=== PATIENT | male | born 1975 | race Hispanic/Latino ===

== ENCOUNTER 2017-09-23 00:29 | Emergency (ER) | payer OTHER ==
--- NOTE | 2017-09-23 01:00 | ED PDOC ---
Arrival/HPI - General Historian: Patient - History of Present Illness Symptom Onset: Gradual Symptom Course: Unchanged Activities at Onset: Light Context: Home <Sean Rod - Last Filed: 09/23/17 06:37> <Alejandro Mulligan - Last Filed: 09/23/17 14:44> - General Chief Complaint: Psychiatric Evaluation Time Seen by Provider: 09/23/17 00:35 - History of Present Illness Narrative History of Present Illness (Text): 09/23/17 00:43 42 year old male, whose past medical history includes anxiety, presents to the emergency department by EMS reporting Suicidal Ideation. He reported to family that he wanted to harm himself and said "bye". Patient reported to be drinking tonight, but states "not so much". Family at bed side endorsed that he is depressed and suicidal. Patient states he is depressed, but denies any fever, chills, chest pain, shortness of breath, nausea, vomiting, diarrhea, urinary symptoms, back pain, neck pain, headache, dizziness, suicidal ideation, or any other complaints. (Sean Rod) Past Medical History - Provider Review Nursing Documentation Reviewed: Yes - Infectious Disease Hx of Infectious Diseases: None - Psychiatric Hx Anxiety: Yes Hx Depression: Yes Hx Substance Use: No - Anesthesia Hx Anesthesia: No <Sean Rod - Last Filed: 09/23/17 06:37> Family/Social History - Physician Review Nursing Documentation Reviewed: Yes Family/Social History: No Known Family HX Smoking Status: Never Smoked Hx Alcohol Use: Yes Hx Substance Use: No <Sean Rod - Last Filed: 09/23/17 06:37> Allergies/Home Meds <Sean Rod - Last Filed: 09/23/17 06:37> <Alejandro Mulligan - Last Filed: 09/23/17 14:44> Allergies/Adverse Reactions: Allergies pine nut Allergy (Verified 09/23/17 00:41) ANAPHYLAXIS Home Medications: Home Meds Medication Instructions Recorded Confirmed Citalopram Hydrobromide [Celexa] 10 mg PO DAILY 09/23/17 09/23/17 Review of Systems - Physician Review All systems were reviewed & negative as marked: Yes - Review of Systems Constitutional: absent: Fevers, Other (Chills) Respiratory: absent: SOB Cardiovascular: absent: Chest Pain Gastrointestinal: absent: Diarrhea, Nausea, Vomiting Genitourinary Male: absent: Dysuria, Frequency, Hematuria Musculoskeletal: absent: Back Pain, Neck Pain Neurological: absent: Headache, Dizziness Psychiatric: Depression. absent: Suicidal Ideation <Sean Rod - Last Filed: 09/23/17 06:37> Physical Exam Vital Signs Reviewed: Yes Temperature: Afebrile Blood Pressure: Normal Pulse: Regular Respiratory Rate: Normal Appearance: Positive for: Well-Appearing, Non-Toxic, Comfortable Pain Distress: None Mental Status: Positive for: Alert and Oriented X 3 - Systems Exam Head: Present: Atraumatic, Normocephalic Pupils: Present: PERRL Extroacular Muscles: Present: EOMI Conjunctiva: Present: Normal Mouth: Present: Moist Mucous Membranes Neck: Present: Normal Range of Motion Respiratory/Chest: Present: Clear to Auscultation, Good Air Exchange. No: Respiratory Distress, Accessory Muscle Use Cardiovascular: Present: Regular Rate and Rhythm, Normal S1, S2. No: Murmurs Abdomen: No: Tenderness, Distention, Peritoneal Signs Back: Present: Normal Inspection Upper Extremity: Present: Normal Inspection. No: Cyanosis, Edema Lower Extremity: Present: Normal Inspection. No: Edema Neurological: Present: GCS=15, CN II-XII Intact, Speech Normal Skin: Present: Warm, Dry, Normal Color. No: Rashes Psychiatric: Present: Alert, Oriented x 3, Normal Insight, Normal Concentration <Sean Rod - Last Filed: 09/23/17 06:37> Vital Signs Temp Pulse Resp BP Pulse Ox 09/23/17 14:42 98 F 83 19 119/53 L 99 09/23/17 11:00 98 F 75 19 124/52 L 99 09/23/17 07:15 97 F L 83 19 131/61 98 09/23/17 06:01 97.8 F 83 18 125/88 95 09/23/17 01:28 97.6 F 74 18 124/75 95 Medical Decision Making - Lab Interpretations I have reviewed the lab results: Yes <Sean Rod - Last Filed: 09/23/17 06:37> <Alejandro Mulligan - Last Filed: 09/23/17 14:44> ED Course and Treatment: 09/23/17 00:43 Impression: 42 year old male presents complaining of feeling depressed and reportedly suicidal ideation. Plan: -- Labs -- Urinalysis -- EKG -- Chest X-ray -- Reassess and disposition Progress Notes: 09/23/17 00:53 [employer] called. Patient attempted to leave Emergency room. Patient accepts to waiting for for PES worker. 09/23/17 04:16 EKG shows NSR at [address]/T wave changes. Interpreted by me. PES seen and evaluated patient. Patient will be evaluated by [facility] Face to Face in the morning. 09/23/17 05:27 CXR Impression: As read by me, negative. 09/23/17 06:38 pt endorsed to day shift, pending UA results and face to face. (Sean Rod) 09/23/17 13:37 Screeners are currently here. 09/23/17 14:42 Seen and evaluated by screeners. Seen and again evaluated by crisis. Patient will be discharged home. (Alejandro Mulligan) - Lab Interpretations Lab Results: 09/23/17 01:27 09/23/17 01:27 Lab Results 09/23/17 07:30: Urine Opiates Screen Negative, Urine Methadone Screen Negative, Ur Barbiturates Screen Negative, Ur Phencyclidine Scrn Negative, Ur Amphetamines Screen Negative, U Benzodiazepines Scrn Negative, U Oth Cocaine Metabols Negative, U Cannabinoids Screen Negative 09/23/17 07:30: Urine Color Yellow, Urine Appearance Clear, Urine pH 6.0, Ur Specific [place] 1.025, Urine Protein Negative, Urine Glucose (UA) Negative, Urine Ketones Negative, Urine Blood Negative, Urine Nitrate Negative, Urine Bilirubin Negative, Urine Urobilinogen 0.2, Ur Leukocyte Esterase Negative 09/23/17 01:27: Alcohol, Quantitative 234 H 09/23/17 01:27: Salicylates < 1 L, Acetaminophen < 10.0 L 09/23/17 01:27: Sodium 147, Potassium 3.6, Chloride 107, Carbon Dioxide 25, Anion Gap 18, BUN 10, Creatinine 0.8, Est GFR ( Amer) > 60, Est GFR (Non- Af Amer) > 60, Random Glucose 112 H, Calcium 8.8, Magnesium 1.9, Total Bilirubin 0.4, AST 34, ALT 48, Alkaline Phosphatase 60, Total Protein 7.1, Albumin 4.5, Globulin 2.5, Albumin/Globulin Ratio 1.8 09/23/17 01:27: WBC 8.5, RBC 4.98, Hgb 16.2, Hct 43.3, MCV 86.9, MCH 32.5, MCHC 37.4 H, RDW 13.1, Plt Count 215, MPV 9.9, Gran % 48.4 L, Lymph % (Auto) 39.4 H, [place] % (Auto) 5.4, Eos % (Auto) 6.3 H, Baso % (Auto) 0.5, Gran # 4.10, Lymph # ( Auto) 3.3, [place] # (Auto) 0.5, Eos # (Auto) 0.5, Baso # (Auto) 0.04 - RAD Interpretation Radiology Orders: 09/23/17 01:42 CXR [CHEST PORTABLE] [RAD] Stat - Scribe Statement The provider has reviewed the documentation as recorded by the Scribe <Sean Rod - Last Filed: 09/23/17 06:37> <Alejandro Mulligan - Last Filed: 09/23/17 14:44> - Scribe Statement Riddhi Thornton Provider Scribe Attestation: All medical record entries made by the Scribe were at my direction and personally dictated by me. I have reviewed the chart and agree that the record accurately reflects my personal performance of the history, physical exam, medical decision making, and the department course for this patient. I have also personally directed, reviewed, and agree with the discharge instructions and disposition. (Sean Rod) Disposition/Present on Arrival - Present on Arrival Any Indicators Present on Arrival: No History of DVT/PE: No History of Uncontrolled Diabetes: No Urinary Catheter: No History of Decub. Ulcer: No History Surgical Site Infection Following: None - Disposition Have Diagnosis and Disposition been Completed?: Yes <Sean Rod - Last Filed: 09/23/17 06:37> - Present on Arrival Any Indicators Present on Arrival: No History of DVT/PE: No History of Uncontrolled Diabetes: No Urinary Catheter: No History of Decub. Ulcer: No - Disposition Have Diagnosis and Disposition been Completed?: Yes Disposition Time: 14:44 Patient Plan: Discharge <Alejandro Mulligan - Last Filed: 09/23/17 14:44> - Disposition Diagnosis: Depression, Substance abuse, Alcohol abuse Disposition: HOME/ ROUTINE Patient Problems: Current Active Problems Problem Status Onset Alcohol abuse Acute Depression Acute Substance abuse Acute Condition: GOOD Discharge Instructions (ExitCare): Depression, Drug Abuse and Drug Addiction ( DC), Alcohol Abuse and Alcoholism (DC) Forms: [employer] (Bengali)
[2017-09-23 01:37] LABS: BASO # 0.04 K/mm3 (0.0-2.0); BASO % 0.5 % (0.0-3.0); EOS # 0.5 (0.0-0.7); EOS % 6.3 % (1.5-5.0); GRAN # 4.1 (1.4-6.5); GRAN % 48.4 % (50.0-68.0); HEMOGLOBIN 16.2 g/dL (14.0-18.0); LYMPH # 3.3 (1.2-3.4); LYMPH % 39.4 % (22.0-35.0); MEAN CELL VOLUME 86.9 fl (80.0-105.0); MEAN CORPUSCULAR HEMOGLOBIN 32.5 pg (25.0-35.0); MEAN CORPUSCULAR HGB CONC 37.4 g/dl (31.0-37.0); MEAN PLATELET VOLUME 9.9 fl (7.0-11.0); MONO # 0.5 (0.1-0.6); MONO % 5.4 % (1.0-6.0); RBC 4.98 10^6/uL (3.5-6.1); RED CELL DISTRIBUTION WIDTH 13.1 % (11.5-14.5); WHITE BLOOD COUNT 8.5 10^3/ul (4.5-11.0)
[2017-09-23 01:44] LABS: ALB/GLOB RATIO 1.8 (1.1-1.8); ALBUMIN 4.5 g/dL (3.0-4.8); ALT/SGPT 48 U/L (7-56); AST/SGOT 34 U/L (17-59); BLOOD UREA NITROGEN 10 mg/dL (7-21); CALCIUM 8.8 mg/dL (8.4-10.5); GFR AFRICAN-AMERICAN > 60; GFR NON-AFRICAN AMERICAN > 60
[2017-09-23 02:01] LABS: ACETAMINOPHEN < 10.0 ug/ml (10.0-20.0); SALICYLATE < 1 mg/dL (2.0-20.0)
[2017-09-23 07:54] VITALS: RESP 19
[2017-09-23 07:54] LABS: URINE BILIRUBIN NEGATIVE (NEGATIVE); URINE BLOOD NEGATIVE (NEGATIVE); URINE GLUCOSE (UA) NEGATIVE (NEGATIVE); URINE LEUKOCYTE ESTERASE NEGATIVE Leu/uL (NEGATIVE); URINE PROTEIN NEGATIVE mg/dL (<30 mg/dL); URINE UROBILINOGEN 0.2 E.U./dL (<1 E.U./dL)
[2017-09-23 07:55] LABS: URINE APPEARANCE CLEAR (CLEAR); URINE COLOR YELLOW (YELLOW)
[2017-09-23 08:11] LABS: BARBITURATES, UR NEGATIVE (NEGATIVE); BENZODIAZEPINES, UR NEGATIVE (NEGATIVE); OPIATES, UR NEGATIVE (NEGATIVE); PHENCYCLIDINE, UR NEGATIVE (NEGATIVE)
--- NOTE | 2017-09-23 09:19 | RAD ---
Date of service: 09/23/2017 HISTORY: pysch COMPARISON: No prior. FINDINGS: LUNGS: No active pulmonary disease. PLEURA: No significant pleural effusion identified, no pneumothorax apparent. CARDIOVASCULAR: Normal. OSSEOUS STRUCTURES: No significant abnormalities. VISUALIZED UPPER ABDOMEN: Normal. OTHER FINDINGS: None. IMPRESSION: No active disease.
[2017-09-23 12:50] VITALS: O2SAT 99
[2017-09-23 15:02] VITALS: BP 123/52; PULSE 75; TEMP 98.1
--- NOTE | 2017-09-24 06:54 | CARD ---
APPROVED REPORT Date of service: 09/23/2017 EKG Measurement Heart [id number] [id number] <Conclusion> Normal sinus rhythm Normal ECG
== END 2017-09-23 15:00 | disposition home or self-care (01) ==
LOC: ED 00:29
DX: F32.9 Major depressive disorder, single episode, unspecified (principal); F10.10 Alcohol abuse, uncomplicated; F19.10 Other psychoactive substance abuse, uncomplicated